=== PATIENT | male | born 1935 | race Caucasian/White ===

== ENCOUNTER 2020-08-26 14:01 | Inpatient (IN) | payer MEDICARE, OTHER ==
[~2020-08-26] VITALS: Ht 180.3 cm; Wt 65.2 kg
--- NOTE | 2020-08-26 14:20 | NUR ---
BREAK RN: PATIENT ELYSSA HO WITH CHIEF C/O DIZZINESS. PER EMS PATIENT WAS EATING LUNCH WITH DAUGHTER AND AFTERWARDS BECAME DIZZY, COULDN'T STAND, AND HAD AN EPISODE OF EMESIS WITH LEFT-ARM NUMBNESS. EPISODE LASTED ABOUT 10 MINUTES. 18 GAUGE IN RFA STARTED EN ROUTE, BLOOD SUGAR EN [id number], VITALS STABLE PER EMS. DAUGHTER AT BEDSIDE, PATIENT DENIES DIZZINESS, NUMBNESS/TINGLING OR NAUSEA AT THIS TIME. 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
[2020-08-26] MEDS ORDERED: SODIUM CHLORIDE FLUSH 10ML SYR IVF ONE (15:00)
[2020-08-26] MEDS ORDERED: SODIUM CHLORIDE 0.9% 1,000ML IVBOLUS ONE (15:00)
[2020-08-26 15:03] LABS: BASOPHILS % (AUTO) 1 % (0-1); EOSINOPHILS % (AUTO) 2 % (1-7); LYMPHOCYTES % (AUTO) 16 % (22-44); MEAN CORPUSCULAR HEMOGLOBIN 28.9 pg (27.5-34.5); MEAN CORPUSCULAR HGB CONC 33.9 g/dL (33.2-36.2); MEAN PLATELET VOLUME 10.3 fL (7.4-10.4); MONOCYTES % (AUTO) 8 % (2-9); NEUTROPHILS % (AUTO) 73 % (42-75); PLATELET COUNT 143 x10^3/uL (130-400); RED BLOOD COUNT 4.44 x10^6/uL (4.38-5.82); RED CELL DISTRIBUTION WIDTH 17.3 % (9.4-14.8)
[2020-08-26 15:04] LABS: MD NO
[2020-08-26 15:15] LABS: ALBUMIN 3.8 g/dL (3.4-5.0); ANION GAP 3 mmol/L (5-15); CALCIUM 9.2 mg/dL (8.5-10.1); CHLORIDE 109 mmol/L (98-107); CREATININE 0.87 mg/dL (0.7-1.3)
[2020-08-26 15:19] LABS: TROPONIN I 0.018 ng/mL (0.000-0.045)
[2020-08-26] MEDS ORDERED: SODIUM CHLORIDE FLUSH 10ML SYR IVF PRN (17:00)
--- NOTE | 2020-08-26 17:04 | NUR ---
PT DENIES DIZZINESS OR CP. PLAN TO BE ADMIT. VSS
--- NOTE | 2020-08-26 17:54 | NUR ---
AMBULATED W STEADY GAIT TO BATHROOM . DENIES CP OR DIZZINESS.
[2020-08-26] MEDS ORDERED: BISACODYL 10 MG SUPP PR PRN (18:00)
[2020-08-26] MEDS ORDERED: DOCUSATE 100 MG CAPSULE PO PRN (18:00)
[2020-08-26] MEDS ORDERED: ENOXAPARIN 40 MG/0.4 ML SQ SCH (18:00)
[2020-08-26] MEDS ORDERED: hydrALAzine 20 MG/ML, 1ML IVPush PRN (18:00)
[2020-08-26] MEDS ORDERED: ONDANSETRON 2MG/ML, 2ML IVPush PRN (18:00)
[2020-08-26] MEDS ORDERED: POLYETHYLENE GLYCOL 17 GM PACKET PO PRN (18:00)
[2020-08-26] MEDS ORDERED: ACETAMINOPHEN 325 MG TABLET PO PRN (18:00)
[2020-08-26] MEDS ORDERED: ONDANSETRON ODT 4 MG PO PRN (18:00)
--- NOTE | 2020-08-26 18:04 | NUR ---
REPORT TO BERTO
[2020-08-26 18:30] LABS: TROPONIN I 0.016 ng/mL (0.000-0.045)
[2020-08-26 18:44] VITALS: BP 161/56
[2020-08-26] MEDS ORDERED: ATORVASTATIN 40 MG TABLET PO SCH (21:00)
[2020-08-27 00:08] LABS: TROPONIN I 0.027 ng/mL (0.000-0.045)
[2020-08-27 01:04] VITALS: BP 122/61
[2020-08-27] MEDS ORDERED: ATOR40TA78 PO (01:41)
[2020-08-27] MEDS ORDERED: AMOX-291 PO (01:41)
[2020-08-27] MEDS ORDERED: CARV6.25 PO (01:41)
[2020-08-27] MEDS ORDERED: ASPI-430 PO (01:41)
[2020-08-27] MEDS ORDERED: LOSA50TA14 PO (01:41)
[2020-08-27] MEDS ORDERED: AMLO-211 PO (01:41)
[2020-08-27] MEDS ORDERED: CHOL10003 PO (01:41)
[2020-08-27] MEDS ORDERED: NITR0.4T28 SL (01:41)
[2020-08-27] MEDS ORDERED: ASPIRIN 81 MG TABLET EC PO SCH (06:00)
[2020-08-27 06:35] LABS: CHLORIDE 113 mmol/L (98-107)
[2020-08-27 06:41] LABS: ANION GAP 5 mmol/L (5-15); CALCIUM 8.7 mg/dL (8.5-10.1); CHOL/HDL RATIO 2.7; CHOLESTEROL, TOTAL 115 mg/dL (140-239); HDL CHOL % 37 % (26-37); HDL CHOLESTEROL (DIRECT) 43 mg/dL (40-60); LDL CHOLESTEROL,CALCULATED 51 mg/dL (54-169); LDL/HDL RATIO 1.2 (0.5-3.0); TRIGLYCERIDES 106 mg/dL (50-200); VLDL CHOLESTEROL 21 mg/dL (0-25)
[2020-08-27 06:45] LABS: BASOPHILS % (AUTO) 1 % (0-1); EOSINOPHILS % (AUTO) 4 % (1-7); LYMPHOCYTES % (AUTO) 26 % (22-44); MEAN CORPUSCULAR HEMOGLOBIN 29.5 pg (27.5-34.5); MEAN CORPUSCULAR HGB CONC 34.7 g/dL (33.2-36.2); MONOCYTES % (AUTO) 10 % (2-9); NEUTROPHILS % (AUTO) 59 % (42-75); PLATELET COUNT 124 x10^3/uL (130-400); RED BLOOD COUNT 3.85 x10^6/uL (4.38-5.82); RED CELL DISTRIBUTION WIDTH 17.4 % (9.4-14.8)
[2020-08-27 06:52] LABS: MD NO
[2020-08-27] MEDS ORDERED: AMLODIPINE 10 MG TAB PO SCH (09:00)
[2020-08-27] MEDS ORDERED: LOSARTAN 100 MG TAB PO SCH (09:00)
[2020-08-27 09:25] VITALS: BP 139/61
[2020-08-27 09:46] LABS: MICROSCOPIC NOT IND
[2020-08-27 12:31] VITALS: BP 144/62
== END 2020-08-27 17:00 | disposition home or self-care (01) | DRG 69 ==
LOC: ED 15:56 → EDIP 17:11 → 5SO 18:32
PROVIDERS: ADMIT Family Medicine; ATTEND Family Medicine
DX: G45.9 Transient cerebral ischemic attack, unspecified (principal); I25.10 Atherosclerotic heart disease of native coronary artery without angina pectoris; E78.5 Hyperlipidemia, unspecified; R00.1 Bradycardia, unspecified; I10 Essential (primary) hypertension; R26.81 Unsteadiness on feet; Z95.0 Presence of cardiac pacemaker; Z86.73 Personal history of transient ischemic attack (TIA), and cerebral infarction without residual deficits; Z95.2 Presence of prosthetic heart valve; Z79.899 Other long term (current) drug therapy
CPT/HCPCS: 36415; 70551; 71045; 80048; 80061; 81003; 82040; 83036; 83735; 84484; 85025; 93005; 93306; 96360; 96361; 96372; 99285; G0378; J1650; J7030